=== PATIENT | male | born 1935 | race African-American/Black ===

== ENCOUNTER 2017-04-22 19:08 | Emergency (ER) | payer MEDICARE ==
[~2017-04-22] VITALS: Ht 180.3 cm; Wt 117.0 kg
[2017-04-22 22:07] VITALS: BP 172/69
== END 2017-04-22 22:43 | disposition home or self-care (01) ==
LOC: ER 19:08
DX: S39.012A Strain of muscle, fascia and tendon of lower back, initial encounter (principal); E11.9 Type 2 diabetes mellitus without complications; D64.9 Anemia, unspecified; Z87.891 Personal history of nicotine dependence; V49.9XXA Car occupant (driver) (passenger) injured in unspecified traffic accident, initial encounter; Y93.89 Activity, other specified; Y99.8 Other external cause status; Y92.410 Unspecified street and highway as the place of occurrence of the external cause; Z90.49 Acquired absence of other specified parts of digestive tract
CPT/HCPCS: 72100; 99284